=== PATIENT | male | born 1960 | race Caucasian/White ===

== ENCOUNTER 2016-06-03 15:42 | Emergency (ER) | payer MEDICARE ==
[~2016-06-03] VITALS: Ht 193 cm; Wt 109.0 kg
[2016-06-03] MEDS ORDERED: MS CONTIN30 MG PO (17:05)
[2016-06-03] MEDS ORDERED: SIMVASTATIN40 MG PO (17:05)
[2016-06-03] MEDS ORDERED: SERTRALINE HCL50 MG PO (17:06)
[2016-06-03] MEDS ORDERED: XANAX1 MG PO (17:07)
[2016-06-03] MEDS ORDERED: PROTONIX40 M2 PO (17:07)
[2016-06-03] MEDS ORDERED: LIPITOR80 MG PO (17:07)
[2016-06-03] MEDS ORDERED: PLAVIX75 MG PO (17:08)
[2016-06-03] MEDS ORDERED: DILAUDID 2MG2 MG/TA1 PO (17:08)
[2016-06-03] MEDS ORDERED: ZOFRAN ODT4 MG PO (17:08)
[2016-06-03] MEDS ORDERED: FLEXERIL5 MG PO (17:09)
[2016-06-03] MEDS ORDERED: LISINOPRIL20 MG PO (17:09)
[2016-06-03 17:21] LABS: HEMATOCRIT 37.5 % (39.0-50.0); HEMOGLOBIN 11.8 g/dl (14.0-18.0); IMMATURE GRANULOCYTES 0.1 % (0.0-1.0); MEAN CELL VOLUME 80.1 fL CALC (80.0-100.0); MEAN CORPUSCULAR HGB 25.2 pG CALC (26.0-32.0); MEAN CORPUSCULAR HGB CONC 31.5 g/L CALC (32.0-36.0); NEUT# 4.02 thou/uL (1.82-7.42); RED BLOOD COUNT 4.68 mill/uL (4.70-6.10); RED CELL DISTRI WIDTH 14.7 % (11.5-15.5)
[2016-06-03 17:26] LABS: URINE BILIRUBIN - DIPSTICK NEGATIVE (NEGATIVE); URINE BLOOD DIPSTICK NEGATIVE (NEGATIVE); URINE CLARITY CLEAR; URINE COLOR YELLOW; URINE GLUCOSE - DIPSTICK NEGATIVE (NEGATIVE); URINE KETONE NEGATIVE (NEGATIVE); URINE LEUK ESTERASE NEGATIVE (NEGATIVE); URINE NITRITE - DIPSTICK NEGATIVE (Negative); URINE PH 6.5 (4.5-8.0); URINE PROTEIN - DIPSTICK NEGATIVE (NEG-TRACE); URINE UROBILINOGEN - DIPSTICK 0.2 E.U./dL (0.2)
[2016-06-03 17:29] LABS: COCAINE NEGATIVE (NEGATIVE); METHADONE NEGATIVE (NEGATIVE); TETRAHYDROCANNABIONOL NEGATIVE (NEGATIVE)
[2016-06-03 17:30] LABS: BARBITURATES NEGATIVE (NEGATIVE); OXCYCODONE NEGATIVE (NEGATIVE); TRICYLIC ANTIDEPRESSANTS NEGATIVE (NEGATIVE)
[2016-06-03 17:34] LABS: ALKALINE PHOSPHATASE 80 u/l (38-126); ANION GAP 15 (6-22 (CALC)); BILIRUBIN, TOTAL 0.3 mg/dL (0.0-1.4); BUN 15 mg/dL (9-20); BUN/CREATININE RATIO 19 (12-20 (CALC)); CALCIUM 9.2 mg/dL (8.4-10.2); CARBON DIOXIDE 24 mmol/l (22-30); CHLORIDE 103 mmol/l (95-108); CREATININE 0.8 mg/dL (0.7-1.3); GFR > 60 ML/MIN (>=60 (CALC)); GFR FOR AFR.AMER. > 60 ML/MIN (>=60 (CALC)); GLUCOSE 82 mg/dL (75-110); POTASSIUM 4.1 mmol/l (3.5-5.1); SGOT/AST 22 u/l (17-59); SGPT/ALT 33 u/l (21-72); SODIUM 139 mmol/l (137-146); TOTAL PROTEIN 7.6 g/dL (6.3-8.2)
[2016-06-03 18:22] VITALS: BP 144/87
== END 2016-06-03 18:28 | disposition home or self-care (01) ==
LOC: ED 15:42
PROVIDERS: Emergency Medicine
DX: S00.93XA Contusion of unspecified part of head, initial encounter (principal); G89.29 Other chronic pain; M54.9 Dorsalgia, unspecified; I10 Essential (primary) hypertension; M06.9 Rheumatoid arthritis, unspecified; M81.0 Age-related osteoporosis without current pathological fracture; F41.9 Anxiety disorder, unspecified; F32.9 Major depressive disorder, single episode, unspecified; W19.XXXA Unspecified fall, initial encounter; Z95.1 Presence of aortocoronary bypass graft; Z87.891 Personal history of nicotine dependence

== ENCOUNTER 2017-10-16 11:46 | Emergency (ER) | payer MEDICARE ==
[~2017-10-16] VITALS: Ht 193 cm; Wt 81.8 kg
[~2017-10-16 11:46] MED LIST: DILAUDID8 MG PO; FLEXERIL5 MG PO; LIPITOR80 MG PO; LISINOPRIL20 MG PO; MS CONTIN30 MG PO; PLAVIX75 MG PO; PROTONIX40 M2 PO; SERTRALINE HCL50 MG PO; SIMVASTATIN40 MG PO; XANAX1 MG PO; ZOFRAN ODT4 MG PO
[2017-10-16] MEDS ORDERED: KLONOPIN2 MG PO (12:55)
[2017-10-16 13:14] LABS: IMMATURE GRANULOCYTES 0.4 % (0.0-5.0); INTERNATIONAL NORMALIZED RATIO 0.9 RATIO (0.7-1.3); MEAN CELL VOLUME 84.4 fL CALC (80.0-100.0); MEAN CORPUSCULAR HGB 26.8 pG CALC (26.0-32.0); MEAN CORPUSCULAR HGB CONC 31.7 g/L CALC (32.0-36.0); PROTHROMBIN TIME 10.5 SECONDS (9.0-12.5); RED BLOOD COUNT 5.38 mill/uL (4.70-6.10); RED CELL DISTRI WIDTH 13.4 % (11.5-15.5)
[2017-10-16 13:15] LABS: ALBUMIN 4.1 g/dL (3.2-5.0); ALKALINE PHOSPHATASE 106 u/l (38-126); ANION GAP 17 (6-22 (CALC)); BILIRUBIN, TOTAL 0.4 mg/dL (0.0-1.4); BUN 11 mg/dL (9-20); BUN/CREATININE RATIO 18 (12-20 (CALC)); CARBON DIOXIDE 23 mmol/l (22-30); CHLORIDE 106 mmol/l (95-108); CREATININE 0.6 mg/dL (0.7-1.3); GFR > 60 ML/MIN (>=60 (CALC)); GFR FOR AFR.AMER. > 60 ML/MIN (>=60 (CALC)); HEMATOCRIT 45.4 % (39.0-50.0); HEMOGLOBIN 14.4 g/dl (14.0-18.0); POTASSIUM 3.5 mmol/l (3.5-5.1); SGPT/ALT 142 u/l (21-72); SODIUM 143 mmol/l (137-146); TOTAL PROTEIN 7.7 g/dL (6.3-8.2)
[2017-10-16 13:19] VITALS: BP 170/70
[2017-10-16 13:19] LABS: SGOT/AST 112 u/l (17-59)
[2017-10-16 13:26] LABS: MYOGLOBIN 27 ng/mL (0 - 121)
== END 2017-10-16 13:19 | disposition short-term general hospital (02) ==
LOC: ED 11:46
PROVIDERS: Emergency Medicine
DX: R55 Syncope and collapse (principal); H53.40 Unspecified visual field defects; R47.1 Dysarthria and anarthria; R27.8 Other lack of coordination; F03.90 Unspecified dementia, unspecified severity, without behavioral disturbance, psychotic disturbance, mood disturbance, and anxiety; F17.210 Nicotine dependence, cigarettes, uncomplicated; I25.2 Old myocardial infarction; Z95.1 Presence of aortocoronary bypass graft; Z95.5 Presence of coronary angioplasty implant and graft; Z87.820 Personal history of traumatic brain injury